=== PATIENT | male | born 1985 | race Caucasian/White ===

== ENCOUNTER 2018-09-05 15:27 | Inpatient (IN) | payer OTHER ==
[~2018-09-05] VITALS: Ht 185.4 cm
[2018-09-05] MEDS ORDERED: SUCCINYLCHOLINE CHLORIDE 20 MG/ML 10 ML VIAL IVP ONE (16:00)
[2018-09-05] MEDS ORDERED: ETOMIDATE 2 MG/ML 10 ML VIAL IVP ONE (16:00)
[2018-09-05 16:04] LABS: GLUCOSE,POINT OF CARE 113 MG/DL (70-110)
[2018-09-05] MEDS: PROPOFOL 1000 MG/ISO-OSM 100 ML IV PRN ×2 (16:04→20:41)
[2018-09-05] MEDS ORDERED: LORazepam 2 MG/ML VIAL IVP ONE (16:15)
[2018-09-05 16:32] LABS: ABG A-A DIFF O2 404.3 mmHg (10-20.0); ABG CARBOXYHEMOGLOBIN 0.6 % (0.0-1.5); ABG HCO3 23.4 mmol/L (22.0-26.0); ABG METHEMOGLOBIN 0.3 % (0.0-1.5); ABG OXYGEN CONTENT 20.2 mL/dL (15.0-23.0); ABG OXYGEN SATURATION 99.1 % (95.0-98.0); ABG OXYHEMOGLOBIN 98.2 % (94.0-100.0); ABG PCO2 47 mmHg (35-45); ABG PH 7.341 (7.350-7.450); ABG TOTAL HEMOGLOBIN 14.2 G/dL (12.0-18.0); PO2, ARTERIAL BG 261.8 mmHg (92.0-100.0); SOURCE, BLOOD GAS ARTERIAL; TEMPERATURE, FAHRENHEIT, BG 98.6 FAHREN (96.0-98.6)
[2018-09-05 16:32] LABS: BASOPHILS % (AUTO) 0.4 % (0.0-2.0); EOSINOPHILS % (AUTO) 0.3 % (1.0-6.0); HEMATOCRIT 42.1 % (41-53); HEMOGLOBIN 14.4 g/dL (13.5-17.5); LYMPHOCYTES # (AUTO) 2.6 K/uL (1.0-4.8); LYMPHOCYTES % (AUTO) 19.3 % (22.0-44.0); MEAN CORPUSCULAR HEMOGLOBIN 29.3 pg (26.0-34.0); MEAN CORPUSCULAR HGB CONC 34.1 G/dL (31.0-37.0); MEAN CORPUSCULAR VOLUME 86 fL (80-100); MONOCYTES # (AUTO) 0.5 K/uL (0.1-1.0); NEUTROPHILS # (AUTO) 10.1 K/uL (1.8-7.7); PLATELET COUNT (AUTO) 313 K/uL (150-450); RED BLOOD CELL COUNT(AUTO) 4.91 MIL/uL (4.50-5.90); RED CELL DISTRIBUTION WIDTH 12.7 % (11.5-14.5)
[2018-09-05 16:33] LABS: SITE, BLOOD GAS LFT RADIAL
[2018-09-05 16:34] LABS: O2 DEVICE,BLOOD GAS VENT (ROOM AIR); VT, ABG 500 ml
[2018-09-05 16:39] LABS: SALICYLATE < 2.8 mg/dL (2.8-20.0)
[2018-09-05 16:40] LABS: ANION GAP 12 mmol/L (8-16); CARBON DIOXIDE 25 mmol/L (22-29); CHLORIDE 102 mmol/L (98-107); GLOMERULAR FILTR. RATE CALC > 60 mL/min (>60); GLUCOSE,RANDOM 124 mg/dL (70-110); POTASSIUM 3.8 mmol/L (3.5-5.1); PROTHROMBIN TIME 10.3 SEC (9.4-11.6); SODIUM SERUM 139 mmol/L (136-145); UREA NITROGEN, BLOOD 15 mg/dL (7-18)
[2018-09-05 16:51] LABS: AMMONIA 15 umol/L (11-32)
[2018-09-05 16:52] LABS: TROPONIN I < 0.02 ng/mL (0.00-0.05)
[2018-09-05 17:05] LABS: ALANINE AMINOTRANSFERASE 26 U/L (12-78); ALKALINE PHOSPHATASE 70 U/L (46-116); ASPARTATE AMINOTRANSFERASE 20 U/L (15-37); BILIRUBIN,TOTAL 0.8 mg/dL (0.1-1.0); CREATINE KINASE, TOTAL ONLY 117 U/L (39-308); TOTAL PROTEIN, SERUM 7.3 g/dL (6.4-8.2)
[2018-09-05 17:10] LABS: APPEARANCE,URINE CLEAR (CLEAR); BILIRUBIN,URINE NEGATIVE (NEGATIVE); GLUCOSE, URINE (UA) NEGATIVE (NEGATIVE); KETONES,URINE NEGATIVE (NEGATIVE); LEUKOCYTE ESTERASE ,URINE NEGATIVE (NEGATIVE); NITRATE,URINE NEGATIVE (NEGATIVE); OCCULT BLOOD,URINE TRACE (NEGATIVE); PROTEIN,URINE NEGATIVE (NEGATIVE); UROBILINOGEN,URINE 0.2 mg/dL (<=1.0)
[2018-09-05 17:17] LABS: BACTERIA,URINE Rare /HPF (None Seen); SQUAMOUS EPITHELIAL CELL,UR Rare /LPF (None Seen); WBC,URINE 0-2 /HPF (0-5)
[2018-09-05 17:20] LABS: ACETAMINOPHEN < 2 mcg/mL (10-30)
[2018-09-05 17:25] LABS: AMPHET/METH SCREEN,URINE NEGATIVE (NEGATIVE); BARBITURATE SCREEN, URINE NEGATIVE (NEGATIVE); BENZODIAZEPINES SCREEN,URINE POSITIVE (NEGATIVE); CANNABINOID SCREEN,URINE NEGATIVE (NEGATIVE); COCAINE SCREEN,URINE NEGATIVE (NEGATIVE); METHADONE SCREEN, URINE POSITIVE (NEGATIVE); OPIATE SCREEN,URINE NEGATIVE (NEGATIVE); PHENCYCLIDINE SCREEN,URINE NEGATIVE (NEGATIVE)
[2018-09-05] MEDS ORDERED: ACETAMINOPHEN 650 MG RECTAL SUPPOSITORY PR ONE (19:15)
[2018-09-05] MEDS ORDERED: SODIUM CHLORIDE 0.9% 1,000 ML IV ONE (19:15)
[2018-09-05] MEDS ORDERED: PIPERACILLIN/TAZO 3.375 GM/D5W 50 ML IV ONE (19:15)
[2018-09-05 21:38] VITALS: BP 122/68
[2018-09-05] MEDS ORDERED: BISACODYL 10 MG RECTAL RECTAL SUPPOSITORY PR PRN (22:15)
[2018-09-05] MEDS ORDERED: ONDANSETRON HCL 4 MG/2 ML VIAL IVP PRN (22:15)
[2018-09-05] MEDS ORDERED: ACETAMINOPHEN 325 MG TABLET PO PRN (22:15)
[2018-09-05] MEDS ORDERED: MAGNESIUM HYDROXIDE SUSPENSION 30 ML UDCUP PO PRN (22:15)
[2018-09-05] MEDS ORDERED: ZOLPIDEM TARTRATE 5 MG TABLET PO PRN (22:15)
[2018-09-05] MEDS ORDERED: MAGNESIUM SULFATE 2 GM, MVI, ADULT NO.1 WITH VIT K 10 ML, THIAMINE HCL 100 MG, FOLIC AC... IV ONE ×5 (22:30)
[2018-09-05] MEDS ORDERED: SODIUM CHLORIDE 0.9% 250 ML IV ONE (22:40)
[2018-09-05] MEDS: HEPARIN SODIUM,PORCINE 5,000 UNITS/ML VIAL SQ SCH (23:14)
[2018-09-06] VITALS (8 sets, daily range): BP systolic 101–145; BP diastolic 51–90
[2018-09-06] MEDS: PROPOFOL 1000 MG/ISO-OSM 100 ML IV PRN ×3 (01:28→11:15)
[2018-09-06] MEDS: PIPERACILLIN/TAZO 3.375 GM/D5W 50 ML IV SCH ×4 (01:29→19:25)
[2018-09-06 05:14] LABS: BASOPHILS % (AUTO) 0.1 % (0.0-2.0); EOSINOPHILS % (AUTO) 0.5 % (1.0-6.0); HEMATOCRIT 38.2 % (41-53); LYMPHOCYTES # (AUTO) 1.5 K/uL (1.0-4.8); LYMPHOCYTES % (AUTO) 11.4 % (22.0-44.0); MEAN CORPUSCULAR HEMOGLOBIN 29.3 pg (26.0-34.0); MEAN CORPUSCULAR HGB CONC 34.1 G/dL (31.0-37.0); MEAN CORPUSCULAR VOLUME 86 fL (80-100); MONOCYTES # (AUTO) 0.9 K/uL (0.1-1.0); MONOCYTES % (AUTO) 7.1 % (2.0-9.0); NEUTROPHILS # (AUTO) 10.4 K/uL (1.8-7.7); NEUTROPHILS % (AUTO) 80.9 % (40.0-70.0); PLATELET COUNT (AUTO) 247 K/uL (150-450); RED BLOOD CELL COUNT(AUTO) 4.45 MIL/uL (4.50-5.90); RED CELL DISTRIBUTION WIDTH 12.7 % (11.5-14.5)
[2018-09-06 05:39] LABS: ALANINE AMINOTRANSFERASE 22 U/L (12-78); ALBUMIN 3.1 g/dL (3.4-5.0); ALKALINE PHOSPHATASE 59 U/L (46-116); ANION GAP 6 mmol/L (8-16); ASPARTATE AMINOTRANSFERASE 18 U/L (15-37); BILIRUBIN,TOTAL 1.9 mg/dL (0.1-1.0); CALCIUM, TOTAL 8.2 mg/dL (8.8-10.5); CARBON DIOXIDE 29 mmol/L (22-29); CHLORIDE 105 mmol/L (98-107); CREATININE 0.78 mg/dL (0.60-1.30); GLOMERULAR FILTR. RATE CALC > 60 mL/min (>60); GLUCOSE,RANDOM 92 mg/dL (70-110); POTASSIUM 3.3 mmol/L (3.5-5.1); SODIUM SERUM 140 mmol/L (136-145); UREA NITROGEN, BLOOD 11 mg/dL (7-18)
[2018-09-06 06:01] LABS: B-TYPE NATRIURETIC PEPTIDE 5 pg/mL (0-100)
[2018-09-06] MEDS: DOCUSATE SODIUM 100 MG CAPSULE PO SCH ×2 (07:39→21:00)
[2018-09-06] MEDS: HEPARIN SODIUM,PORCINE 5,000 UNITS/ML VIAL SQ SCH ×2 (08:17→15:04)
[2018-09-06] MEDS: PANTOPRAZOLE SODIUM 40 MG DR TABLET PO SCH (08:17)
[2018-09-06 10:32] LABS: ABG BASE EXCESS -2.2 mmol/L (-2.0-3.0); ABG CARBOXYHEMOGLOBIN 0.2 % (0.0-1.5); ABG HCO3 22.7 mmol/L (22.0-26.0); ABG METHEMOGLOBIN 0.3 % (0.0-1.5); ABG OXYGEN CONTENT 18.1 mL/dL (15.0-23.0); ABG OXYGEN SATURATION 97.3 % (95.0-98.0); ABG OXYHEMOGLOBIN 96.8 % (94.0-100.0); ABG PCO2 43 mmHg (35-45); ABG PH 7.356 (7.350-7.450); ABG TOTAL HEMOGLOBIN 13.2 G/dL (12.0-18.0); PO2, ARTERIAL BG 103.9 mmHg (92.0-100.0); SOURCE, BLOOD GAS ARTERIAL
[2018-09-06 10:33] LABS: O2 DEVICE,BLOOD GAS VENTILATOR (ROOM AIR); PEEP,BG 0 cm H2O; SITE, BLOOD GAS RT RADIAL; VT, ABG 500 ml
[2018-09-06] MEDS ORDERED: POTASSIUM CHL 10 MEQ/WATER 50 ML IV PRN ×3 (15:15)
[2018-09-06] MEDS ORDERED: POTASSIUM CHLORIDE 20 MEQ ER TABLET PO PRN (15:15)
[2018-09-06] MEDS ORDERED: POTASSIUM CHLORIDE 10% 40 MEQ/30 ML LIQUID UDCUP PO PRN ×2 (15:15)
[2018-09-06] MEDS: HALOPERIDOL LACTATE 5 MG/ML VIAL IVP PRN ×2 (15:27→21:27)
[2018-09-06] MEDS: RINGERS SOLUTION,LACTATED 1,000 ML IV SCH (15:28)
[2018-09-06] MEDS: POTASSIUM CHL 10 MEQ/WATER 50 ML IV PRN ×3 (15:28→18:20)
[2018-09-06] MEDS ORDERED: ACETAMINOPHEN 650 MG RECTAL SUPPOSITORY PR ONE (16:07)
[2018-09-06] MEDS ORDERED: ACETAMINOPHEN 650 MG RECTAL SUPPOSITORY PR PRN (16:15)
[2018-09-06] MEDS: MORPHINE SULFATE 4 MG/ML SYRINGE IVP PRN (19:25)
[2018-09-06] MEDS: ACETAMINOPHEN 650 MG RECTAL SUPPOSITORY PR PRN (21:26)
[2018-09-07] VITALS (11 sets, daily range): BP systolic 109–124; BP diastolic 35–91
[2018-09-07] MEDS ORDERED: SODIUM CHLORIDE 0.9% 250 ML IV ONE (00:12)
[2018-09-07] MEDS: HEPARIN SODIUM,PORCINE 5,000 UNITS/ML VIAL SQ SCH ×3 (00:17→16:00)
[2018-09-07] MEDS: MORPHINE SULFATE 4 MG/ML SYRINGE IVP PRN ×2 (00:18→05:04)
[2018-09-07] MEDS: PIPERACILLIN/TAZO 3.375 GM/D5W 50 ML IV SCH ×4 (01:46→19:33)
[2018-09-07] MEDS: HALOPERIDOL LACTATE 5 MG/ML VIAL IVP PRN ×2 (03:39→19:33)
[2018-09-07] MEDS: ACETAMINOPHEN 650 MG RECTAL SUPPOSITORY PR PRN (03:42)
[2018-09-07] MEDS: DOCUSATE SODIUM 100 MG CAPSULE PO SCH ×2 (10:53→19:33)
[2018-09-07] MEDS: PANTOPRAZOLE SODIUM 40 MG DR TABLET PO SCH (10:53)
[2018-09-07] MEDS: RINGERS SOLUTION,LACTATED 1,000 ML IV SCH (14:13)
[2018-09-08 00:29] VITALS: BP 112/74
[2018-09-08] MEDS ORDERED: SODIUM CHLORIDE 0.9% 100 ML ONE (00:49)
[2018-09-08] MEDS: PIPERACILLIN/TAZO 3.375 GM/D5W 50 ML IV SCH ×4 (01:18→20:04)
[2018-09-08 04:23] VITALS: BP 109/81
[2018-09-08] MEDS: HALOPERIDOL LACTATE 5 MG/ML VIAL IVP PRN (05:57)
[2018-09-08 06:43] LABS: ANION GAP 12 mmol/L (8-16); CALCIUM, TOTAL 9.2 mg/dL (8.8-10.5); CARBON DIOXIDE 23 mmol/L (22-29); CHLORIDE 103 mmol/L (98-107); CREATININE 0.79 mg/dL (0.60-1.30); GLOMERULAR FILTR. RATE CALC > 60 mL/min (>60); GLUCOSE,RANDOM 94 mg/dL (70-110); POTASSIUM 3.9 mmol/L (3.5-5.1); SODIUM SERUM 138 mmol/L (136-145); UREA NITROGEN, BLOOD 9 mg/dL (7-18)
[2018-09-08 06:59] LABS: BASOPHILS % (AUTO) 0.3 % (0.0-2.0); EOSINOPHILS % (AUTO) 1.4 % (1.0-6.0); HEMATOCRIT 39.1 % (41-53); HEMOGLOBIN 13.8 g/dL (13.5-17.5); LYMPHOCYTES # (AUTO) 1.1 K/uL (1.0-4.8); LYMPHOCYTES % (AUTO) 15.8 % (22.0-44.0); MEAN CORPUSCULAR HEMOGLOBIN 29.7 pg (26.0-34.0); MEAN CORPUSCULAR HGB CONC 35.4 G/dL (31.0-37.0); MEAN CORPUSCULAR VOLUME 84 fL (80-100); MONOCYTES # (AUTO) 0.6 K/uL (0.1-1.0); MONOCYTES % (AUTO) 9.1 % (2.0-9.0); NEUTROPHILS # (AUTO) 5.1 K/uL (1.8-7.7); NEUTROPHILS % (AUTO) 73.4 % (40.0-70.0); PLATELET COUNT (AUTO) 254 K/uL (150-450); RED BLOOD CELL COUNT(AUTO) 4.65 MIL/uL (4.50-5.90); RED CELL DISTRIBUTION WIDTH 12.7 % (11.5-14.5)
[2018-09-08 07:50] VITALS: BP 117/72
[2018-09-08] MEDS: POTASSIUM CHLORIDE 20 MEQ ER TABLET PO PRN ×2 (07:59→17:30)
[2018-09-08] MEDS: PANTOPRAZOLE SODIUM 40 MG DR TABLET PO SCH (07:59)
[2018-09-08] MEDS: HYDROCODONE/ACETAMINOPHEN 5-325 MG TABLET PO PRN (07:59)
[2018-09-08] MEDS: DOCUSATE SODIUM 100 MG CAPSULE PO SCH ×2 (07:59→20:07)
[2018-09-08] MEDS: METHADONE HCL 10 MG TABLET PO SCH (08:50)
[2018-09-08] MEDS ORDERED: METHADONE HCL 10 MG TABLET PO SCH (09:00)
[2018-09-08 11:10] VITALS: BP 111/81
[2018-09-08] MEDS ORDERED: ETOMIDATE 2 MG/ML 10 ML VIAL ONE (16:42)
[2018-09-08] MEDS ORDERED: SUCCINYLCHOLINE CHLORIDE 20 MG/ML 10 ML VIAL ONE (16:42)
[2018-09-08 19:31] VITALS: BP 94/55
[2018-09-08 23:15] VITALS: BP 105/56
[2018-09-09] MEDS: PIPERACILLIN/TAZO 3.375 GM/D5W 50 ML IV SCH ×2 (01:37→07:29)
[2018-09-09 03:37] VITALS: BP 106/66
[2018-09-09] MEDS: HALOPERIDOL LACTATE 5 MG/ML VIAL IVP PRN (04:05)
[2018-09-09] MEDS: HYDROCODONE/ACETAMINOPHEN 5-325 MG TABLET PO PRN (05:16)
[2018-09-09] MEDS: MORPHINE SULFATE 4 MG/ML SYRINGE IVP PRN (06:20)
[2018-09-09] MEDS: DOCUSATE SODIUM 100 MG CAPSULE PO SCH (07:28)
[2018-09-09] MEDS: PANTOPRAZOLE SODIUM 40 MG DR TABLET PO SCH (07:29)
[2018-09-09] MEDS: METHADONE HCL 10 MG TABLET PO SCH (07:29)
[2018-09-09 07:30] VITALS: BP 133/76
[2018-09-09] MEDS ORDERED: LEVO750T21 PO (08:55)
== END 2018-09-09 10:00 | disposition home or self-care (01) | DRG 720 ==
LOC: EMS 15:29 → ICU 20:00 → 5S 09-07 20:45
PROVIDERS: ADMIT Internal Medicine; ATTEND Internal Medicine
PROC: 5A1935Z Respiratory Ventilation, Less than 24 Consecutive Hours (ICD-10-PCS; principal; 2018-09-05)
PROC: 0BH18EZ Insertion of Endotracheal Airway into Trachea, Via Natural or Artificial Opening Endoscopic (ICD-10-PCS; 2018-09-05)
PROC: 02HV33Z Insertion of Infusion Device into Superior Vena Cava, Percutaneous Approach (ICD-10-PCS; 2018-09-07)
PROC: B548ZZA Ultrasonography of Superior Vena Cava, Guidance (ICD-10-PCS; 2018-09-07)
DX: A41.9 Sepsis, unspecified organism (principal); J96.01 Acute respiratory failure with hypoxia; J69.0 Pneumonitis due to inhalation of food and vomit; G92 Toxic encephalopathy; T50.901A Poisoning by unspecified drugs, medicaments and biological substances, accidental (unintentional), initial encounter; F32.9 Major depressive disorder, single episode, unspecified; F19.10 Other psychoactive substance abuse, uncomplicated; Z79.899 Other long term (current) drug therapy; Z91.19 Patient's noncompliance with other medical treatment and regimen
CPT/HCPCS: 31500; 36600; 51702; 70450; 71250; 82805; 83735; 84100; 84132; 84443; 87040; 87070; 87081; 93005; 94002; 94003; 96374; 99291; G0378; G0480; G0481; J0330; J1630; J1644; J2060; J2270; J2543; J2704; J3411; J3475; J3480; J3490; J7030; J7050; J7120